=== PATIENT | male | born 1960 | race African-American/Black ===

== ENCOUNTER 2018-11-01 20:31 | Emergency (ER) | payer BC ==
[~2018-11-01] VITALS: Ht 177.8 cm; Wt 155.6 kg
[~2018-11-01 20:31] MED LIST: ASPI-630 PO; ATOR40TA PO; GLYB2.5T2 PO; INSU100V13 SQ; LISI-334 PO
[2018-11-01 21:07] VITALS: BP 193/91
--- NOTE | 2018-11-01 21:22 | PHYS DOC ---
Past Medical History Past Medical History: Diabetes-Type II, DVT, Hypertension, [place], Vascular Disease Additional Past Medical Histor: HEART CATH, SLEEP APNEA Past Surgical History: No Surgical History Alcohol Use: Occasionally Drug Use: Other Adult General Chief Complaint Chief Complaint: FOOT INJURY PAIN HPI HPI Patient is a 58 year old AA male who presents to the ER with complaints of left great toe pain and redness for the last 3 days. PT states he has a hx of gout and reports that he takes allopurinol and colchicine. He denies any known injury. He denies any fever, numbness, or tingling. Pt states his last gout flare up was in June. He took a medrol dosepak and oxycodone at that time which reduced his symptoms. Review of Systems Review of Systems Constitutional: Denies fever or chills [] Musculoskeletal: see HPI Integument: reports erythema and warmth of left great toe Neurologic: Denies headache, focal weakness or sensory changes [] Allergies Allergies Allergies Coded Allergies Type Severity Reaction Last Updated Verified No Known Drug Allergies 03/14/16 No Physical Exam Physical Exam Constitutional: Well developed, well nourished, no acute distress, non-toxic appearance, obese. [] HENT: Normocephalic, atraumatic, bilateral external ears normal, nose normal. [] Eyes: conjunctiva normal, no discharge. [] Skin: Warm, dry,L great toe erythema and warmth to palpation Extremities: No cyanosis, no clubbing, ROM intact, 1+ edema of L great toe with TTP Neurologic: Alert and oriented X 3, normal motor function, normal sensory function, no focal deficits noted. [] Psychologic: Affect normal, judgement normal, mood normal. [] Current Patient Data Vital Signs Vital Signs Date Time Temp Pulse Resp B/P (MAP) Pulse Ox O2 Delivery O2 Flow Rate FiO2 11/01/18 21:07 97.5 78 18 193/91 (125) 96 Room Air 97.5 EKG EKG [] Radiology/Procedures Radiology/Procedures [] Course & Med Decision Making Course & Med Decision Making Pertinent Labs and Imaging studies reviewed. (See chart for details) [] Dragon Disclaimer Dragon Disclaimer This electronic medical record was generated, in whole or in part, using a voice recognition dictation system. Departure Departure Impression: Primary Impression: Gout attack Disposition: 01 HOME, SELF-CARE Condition: STABLE Referrals: UNKNOWN PCP NAME (PCP) Patient Instructions: Gout, [id number] Additional Instructions: Fill prescriptions and use as directed. Follow-up with your primary care doctor symptoms persist, return to the ER if symptoms worsen. Scripts Hydrocodone Bit/Acetaminophen (HYDROCODONE-APAP 5-325 ) 1 Tab Tablet 1 TAB PO PRN Q6HRS PRN for PAIN for 3 Days, #12 TAB 0 Refills Prov: EVERT GONZALEZ APRN 11/01/18 Methylprednisolone (MEDROL) 4 Mg Tab.ds.pk 1 PKG PO UD, #1 PKG 0 Refills Prov: EVERT GONZALEZ APRN 11/01/18 Problem Qualifiers Primary Impression: Gout attack Gout site: toe Gout etiology: unspecified cause Laterality: left Qualified Codes: M10.9 - Gout, unspecified EVERT GONZALEZ APRN Nov 01, 2018 21:22
[2018-11-01] MEDS ORDERED: METH4TAB2 PO (21:43)
[2018-11-01] MEDS ORDERED: HYDR-2761 PO (21:43)
== END 2018-11-01 21:58 | disposition home or self-care (01) ==
LOC: ER 20:31
DX: M10.9 Gout, unspecified (principal); E11.9 Type 2 diabetes mellitus without complications; I10 Essential (primary) hypertension; I25.2 Old myocardial infarction; Z86.718 Personal history of other venous thrombosis and embolism
CPT/HCPCS: 99283

== ENCOUNTER 2020-11-09 12:44 | Emergency (ER) | payer BC ==
[~2020-11-09 12:44] MED LIST changes: +HYDR-2761 PO; -LISI-334 PO; +LISI20TA18 PO; +METH4TAB2 PO
== END 2020-11-09 12:50 | disposition left against medical advice (07) ==
LOC: ER 12:44
DX: R06.02 Shortness of breath (principal); Z53.21 Procedure and treatment not carried out due to patient leaving prior to being seen by health care provider